=== PATIENT | male | born 1995 | race Two or more races ===

== ENCOUNTER 2023-09-05 11:48 | Emergency (ER) | payer OTHER ==
[~2023-09-05] VITALS: Ht 152.4 cm; Wt 77.1 kg
[2023-09-05] MEDS ORDERED: IBUPROFEN 400 MG TABLET ONE (12:23)
[2023-09-05] MEDS: IBUPROFEN 400 MG TABLET PO ONE (12:26)
[2023-09-05] MEDS ORDERED: NAPR-1164 PO (13:16)
[2023-09-05 13:26] VITALS: BP 121/71; TEMP 98.5; O2SAT 100
== END 2023-09-05 13:26 | disposition home or self-care (01) ==
LOC: ER 11:48
DX: S60.221A Contusion of right hand, initial encounter (principal); I10 Essential (primary) hypertension; Z79.899 Other long term (current) drug therapy; W18.39XA Other fall on same level, initial encounter; Y93.89 Activity, other specified; Y92.89 Other specified places as the place of occurrence of the external cause; Y99.8 Other external cause status
CPT/HCPCS: 73110; 73130-TC